=== PATIENT | male | born 1970 | race Caucasian/White ===

== ENCOUNTER 2016-08-29 07:10 | Inpatient (IN) | payer OTHER ==
[~2016-08-29] VITALS: Ht 180.3 cm; Wt 89.2 kg
[2016-08-29 07:52] LABS: POINT-OF-CARE METER ID UU14100415
[2016-08-29 08:16] LABS: HEMATOCRIT 37.4 % (38.0-50.0); MCH 35.5 PG (29.0-34.0); MCHC 36.9 G/DL (30.0-36.0); MCV 96.1 FL (86-99); MEAN PLAT.VOLUME 8.6 uM^3 (9.0-12.4); PLATELET COUNT 61 K/uL (156-360); RBC DIS.WIDTH-SD 40.6 % (39-53); RED BLOOD COUNT 3.89 M/uL (4.00-5.50); WHITE BLOOD COUNT 5.8 K/uL (4.1-10.2)
[2016-08-29 08:18] LABS: EOSINOPHIL (%) 0 % (0-5); IMMATURE GRANULOCYTE (%) 0.2 % (0.0-0.7); IMMATURE GRANULOCYTE COUNT 0.1 K/uL; LYMPHOCYTE COUNT 0.5 K/uL (1.0-2.8); MONOCYTE (%) 21.4 % (3-12); MONOCYTE COUNT 1.3 K/uL (0-0.8)
[2016-08-29 08:45] LABS: CHLORIDE 95 mEq/L (99-109); POTASSIUM 3.8 mEq/L (3.7-5.4); SODIUM 137 mEq/L (136-147)
[2016-08-29 08:48] LABS: GLUCOSE 118 mg/dL (70-99)
[2016-08-29 08:49] LABS: ANION GAP 13 MEQ/L (2-14)
[2016-08-29 08:50] LABS: TOTAL BILIRUBIN 2.5 mg/dL (0.0-1.0)
[2016-08-29 08:51] LABS: GFR ESTIMATE (CALCULATED) > 59 mL/min/
[2016-08-29 08:52] LABS: UREA NITROGEN (BUN) 9 mg/dL (9-23)
[2016-08-29 08:55] LABS: ADD MIUA? YES; BILIRUBIN MODERATE; BLOOD NEGATIVE; GLUCOSE (STRIP) NEGATIVE; KETONES 15; LEUKOCYTES SMALL; NITRITE POSITIVE; PROTEIN (STRIP) 100
[2016-08-29 08:57] LABS: COLOR DK YELLOW ((YELLOW))
[2016-08-29 09:25] LABS: INFLUENZA A VIRAL ANTIGEN POSITIVE; INFLUENZA B VIRAL ANTIGEN NEGATIVE
[2016-08-29 09:26] LABS: ALKALINE PHOSPHATASE 101 IU/L (3-129)
[2016-08-29 09:28] LABS: EPITHELIAL CELLS 1+ /HPF
[2016-08-29 09:29] LABS: BACTERIA RARE /HPF; CASTS PRESENT /LPF; CRYSTALS NONE SEEN; HYALINE CASTS 0-5 /LPF; MUCUS 1+ /LPF; RED BLOOD CELLS NONE SEEN /HPF (0-5); UCUL ADDED? NO; WHITE BLOOD CELLS 0-5 /HPF (0-5)
[2016-08-29 09:32] LABS: ICTOTEST NEGATIVE
[2016-08-29] MEDS ORDERED: MULTI-VITAMIN1 EAC3 PO (13:06)
[2016-08-29] MEDS ORDERED: PROAIR HFA8.5 GM IH (13:07)
[2016-08-29 15:44] VITALS: BP 140/65
[2016-08-29 20:00] VITALS: BP 123/80
[2016-08-29 22:38] LABS: BASE EXCESS 7.1 mEq/L (-3 to +3); BICARBONATE 30.1 mEq/L (22-26); CARBOXY HGB 2.9 % (0-5); METHEMOGLOBIN 1.5 % (0-1.5); PCO2 36 mm Hg (35-45); PO2 61 mm Hg (80-100); SITE LB; pH 7.53 (7.35-7.45)
[2016-08-29 22:39] LABS: COMMENTS - BLOOD GASES C+; MODE RA; TOTAL RESP RATE 20 resp/min
[2016-08-30] VITALS (21 sets, daily range): BP systolic 134–158; BP diastolic 69–100
[2016-08-30 01:14] LABS: METH RESISTANT S AUREUS PCR POSITIVE (NEGATIVE)
[2016-08-30 01:21] LABS: PROBE CHECK PASS
[2016-08-30 05:26] LABS: HEMATOCRIT 35.2 % (38.0-50.0); MCH 34.6 PG (29.0-34.0); MCHC 34.9 G/DL (30.0-36.0); MCV 99.2 FL (86-99); MEAN PLAT.VOLUME 9.7 uM^3 (9.0-12.4); PLATELET COUNT 64 K/uL (156-360); RBC DIS.WIDTH-CV 12.3 % (11.8-14.6); RBC DIS.WIDTH-SD 44.6 % (39-53); RED BLOOD COUNT 3.55 M/uL (4.00-5.50); WHITE BLOOD COUNT 6.2 K/uL (4.1-10.2)
[2016-08-30 05:35] LABS: INTER. NORMALIZED RATIO 1.1; PROTHROMBIN TIME 11.6 (9.2-11.2)
[2016-08-30 05:52] LABS: ALKALINE PHOSPHATASE 87 IU/L (3-129); ANION GAP 10 MEQ/L (2-14); CHLORIDE 99 MEQ/L (99-109); DIRECT BILIRUBIN 0.8 mg/dL (0.0-0.3); GFR ESTIMATE (CALCULATED) > 59 mL/min/; GLUCOSE 115 mg/dL (70-99); POTASSIUM 3.9 MEQ/L (3.7-5.4); SAMPLE HEMOLYSIS CHECK 0; SAMPLE ICTERIC CHECK 0; SAMPLE LIPEMIA CHECK 0; SODIUM 140 MEQ/L (136-147); TOTAL BILIRUBIN 1.8 MG/DL (0.0-1.0); UREA NITROGEN (BUN) 8 mg/dL (9-23)
[2016-08-30 10:27] LABS: HBSG INDEX 0.21
[2016-08-30 10:28] LABS: HPCA INDEX 0.14
[2016-08-30 10:29] LABS: ANTI-HEPATITIS A VIRUS (IGM) Nonreactive; HAV INDEX 0.18
[2016-08-30 10:30] LABS: ANTI-HEPATITIS B CORE (IGM) Nonreactive; HBC IgM INDEX 0.08
[2016-08-31] VITALS (11 sets, daily range): BP systolic 95–156; BP diastolic 63–99
[2016-08-31 04:43] LABS: CHLORIDE 101 mEq/L (99-109); POTASSIUM 3.2 mEq/L (3.7-5.4); SODIUM 139 mEq/L (136-147)
[2016-08-31 04:45] LABS: GLUCOSE 88 mg/dL (70-99)
[2016-08-31 04:46] LABS: ANION GAP 16 MEQ/L (2-14)
[2016-08-31 04:49] LABS: ALKALINE PHOSPHATASE 96 IU/L (3-129); GFR ESTIMATE (CALCULATED) > 59 mL/min/
[2016-08-31 04:50] LABS: UREA NITROGEN (BUN) 6 mg/dL (9-23)
[2016-08-31 04:55] LABS: TOTAL BILIRUBIN 1.9 mg/dL (0.0-1.0)
[2016-08-31] MEDS ORDERED: CEFTIN250 MG PO (11:34)
[2016-08-31] MEDS ORDERED: TAMIFLU75 MG PO (11:34)
== END 2016-08-31 16:18 | disposition home or self-care (01) | DRG 896 ==
LOC: EME 07:10 → EDOF 12:50 → 5WEST 12:50 → EDOF 12:50 → 5WEST 14:37 → 4WEST 23:34 → 5WEST 23:34 → 4WEST 23:34 → 5WEST 23:34 → 4WEST 08-30 00:01
PROVIDERS: Emergency Medicine; Internal Medicine; Internal Medicine Gastroenterology; Internal Medicine Pulmonary Disease; Nurse Practitioner Adult Health; Surgery
DX: F10.231 Alcohol dependence with withdrawal delirium (principal); J10.08 Influenza due to other identified influenza virus with other specified pneumonia; D69.59 Other secondary thrombocytopenia; J12.9 Viral pneumonia, unspecified; R74.0 Nonspecific elevation of levels of transaminase and lactic acid dehydrogenase [LDH]; F10.229 Alcohol dependence with intoxication, unspecified; K80.20 Calculus of gallbladder without cholecystitis without obstruction; D64.9 Anemia, unspecified; J45.909 Unspecified asthma, uncomplicated; R19.7 Diarrhea, unspecified
CPT/HCPCS: 36600; 71010; 72100; 76705; 80053; 80074; 81003; 82248; 82803; 82948; 85025; 85027; 85610; 87086; 87493; 87502; 87506; 87641; 94799; 99202; 99281; 99285; J0696; J1630; J2060; J2405; J3411; J7030; J7050

== ENCOUNTER 2017-02-18 05:47 | Inpatient (IN) | payer OTHER ==
[~2017-02-18] VITALS: Ht 182.9 cm; Wt 88.3 kg
[2017-02-18] VITALS (13 sets, daily range): BP systolic 109–153; BP diastolic 70–94
[~2017-02-18 05:47] MED LIST: CEFTIN250 MG PO; MULTI-VITAMIN1 EAC3 PO; PROAIR HFA8.5 GM IH; TAMIFLU75 MG PO
[2017-02-18 06:39] LABS: EOSINOPHIL (%) 1.4 % (0-5); EOSINOPHIL COUNT 0.1 K/uL (0-0.3); HEMATOCRIT 39.4 % (38.0-50.0); IMMATURE GRANULOCYTE (%) 0.3 % (0.0-0.7); INSTRUMENT ABS NEUTROPHIL CT 4.3 K/uL; LYMPHOCYTE COUNT 0.9 K/uL (1.0-2.8); MCH 35.1 PG (29.0-34.0); MCHC 35.8 G/DL (30.0-36.0); MONOCYTE (%) 17.7 % (3-12); MONOCYTE COUNT 1.1 K/uL (0-0.8); NEUTROPHIL (%) 66.8 % (45-76); NEUTROPHIL COUNT 4.3 K/uL (1.8-6.4); PLATELET COUNT 78 K/uL (156-360); RBC DIS.WIDTH-CV 11.6 % (11.8-14.6); RBC DIS.WIDTH-SD 41.8 % (39-53); RED BLOOD COUNT 4.02 M/uL (4.00-5.50); WHITE BLOOD COUNT 6.4 K/uL (4.1-10.2)
[2017-02-18 06:50] LABS: CHLORIDE 97 mEq/L (99-109); POTASSIUM 3.1 mEq/L (3.7-5.4); SODIUM 140 mEq/L (136-147)
[2017-02-18 06:53] LABS: GLUCOSE 73 mg/dL (70-99)
[2017-02-18 06:54] LABS: ANION GAP 18 MEQ/L (2-14); TOTAL BILIRUBIN 2.6 mg/dL (0.0-1.0)
[2017-02-18 06:56] LABS: ALKALINE PHOSPHATASE 85 IU/L (3-129); SERUM ETHYL ALCOHOL < 10 mg/dL
[2017-02-18 06:57] LABS: GFR ESTIMATE (CALCULATED) > 59 mL/min/
[2017-02-18 06:58] LABS: DIRECT BILIRUBIN 1.2 mg/dL (0.0-0.3); UREA NITROGEN (BUN) 11 mg/dL (9-23)
[2017-02-18 09:33] LABS: INTER. NORMALIZED RATIO 1.2; PROTHROMBIN TIME 13.4 SEC (10.2-12.9)
[2017-02-18 13:19] LABS: METH RESISTANT S AUREUS PCR NEGATIVE (NEGATIVE)
[2017-02-18 13:56] LABS: PROBE CHECK PASS; SPECIMEN PROCESSING CONTROL PASS
[2017-02-18 15:17] LABS: ADD MIUA? YES; BILIRUBIN NEGATIVE; BLOOD SMALL; COLOR YELLOW ((YELLOW)); GLUCOSE (STRIP) NEGATIVE; KETONES 5; LEUKOCYTES NEGATIVE; NITRITE NEGATIVE; PROTEIN (STRIP) NEGATIVE; SPECIFIC GRAVITY 1.003 (1.000-1.030); UROBILINOGEN 0.2 MG/DL (0.2-1.0)
[2017-02-18 15:28] LABS: BACTERIA NONE SEEN /HPF; EPITHELIAL CELLS NONE SEEN /HPF; MUCUS NONE SEEN /LPF; RED BLOOD CELLS 0-5 /HPF (0-5); WHITE BLOOD CELLS 0-5 /HPF (0-5)
[2017-02-18 15:37] LABS: AMPHETAMINE NEGATIVE (500 ng/mL); BARBITURATES NEGATIVE (200 ng/mL); BENZODIAZEPINES PRESUMPTIVE POSITIVE (150 ng/mL); COCAINE NEGATIVE (150 ng/mL); INTERNAL CONTROLS VALID? YES; METHADONE NEGATIVE (200 ng/mL); METHAMPHETAMINE NEGATIVE (500 ng/mL); OPIATES (MORPHINE) NEGATIVE (100 ng/mL); OXYCODONE NEGATIVE (100 ng/mL); PHENCYCLIDINE NEGATIVE (25 ng/mL); PROPOXYPHENE NEGATIVE (300 ng/mL); THC CANNABINOIDS NEGATIVE (50 ng/mL); TRICYCLIC ANTIDEPRESSANTS NEGATIVE (300 ng/mL)
[2017-02-18 15:38] LABS: ADD MEDTOX COMMENT Y
[2017-02-18 16:29] LABS: BENZODIAZEPINES, URINE SCREEN POSITIVE (200 ng/mL)
[2017-02-18 16:46] LABS: BASE EXCESS 1.3 mEq/L (-3 to +3); BICARBONATE 26.6 mEq/L (22-26); CARBOXY HGB 2.9 % (0-5); COMMENTS - BLOOD GASES +C; DEVICE NC; METHEMOGLOBIN 1.5 % (0-1.5); O2 FLOW 3 L/MIN; PCO2 44 mm Hg (35-45); PO2 85 mm Hg (80-100); SITE LR +A; TOTAL RESP RATE 24 resp/min; pH 7.39 (7.35-7.45)
[2017-02-18 20:07] LABS: ANION GAP 14 MEQ/L (2-14); CHLORIDE 102 MEQ/L (99-109); GFR ESTIMATE (CALCULATED) > 59 mL/min/; POTASSIUM 3.2 MEQ/L (3.7-5.4); SAMPLE HEMOLYSIS CHECK 0; SAMPLE ICTERIC CHECK 0; SAMPLE LIPEMIA CHECK 0; SODIUM 141 MEQ/L (136-147); UREA NITROGEN (BUN) 7 mg/dL (9-23)
[2017-02-18 20:20] LABS: GLUCOSE 99 mg/dL (70-99)
[2017-02-19] VITALS (16 sets, daily range): BP systolic 99–138; BP diastolic 72–95
[2017-02-19 06:34] LABS: ALKALINE PHOSPHATASE 67 IU/L (3-129); ANION GAP 16 MEQ/L (2-14); CHLORIDE 104 MEQ/L (99-109); GFR ESTIMATE (CALCULATED) > 59 mL/min/; SAMPLE HEMOLYSIS CHECK 0; SAMPLE ICTERIC CHECK 0; SAMPLE LIPEMIA CHECK 0; SODIUM 138 MEQ/L (136-147); TOTAL BILIRUBIN 1.9 MG/DL (0.0-1.0); UREA NITROGEN (BUN) 7 mg/dL (9-23)
[2017-02-19 06:57] LABS: EOSINOPHIL (%) 3.4 % (0-5); EOSINOPHIL COUNT 0.2 K/uL (0-0.3); HEMATOCRIT 36.6 % (38.0-50.0); IMMATURE GRANULOCYTE (%) 0.5 % (0.0-0.7); INSTRUMENT ABS NEUTROPHIL CT 3.6 K/uL; LYMPHOCYTE COUNT 0.8 K/uL (1.0-2.8); MCH 36.5 PG (29.0-34.0); MCHC 36.6 G/DL (30.0-36.0); MCV 99.7 FL (86-99); MEAN PLAT.VOLUME 8.3 uM^3 (9.0-12.4); MONOCYTE (%) 15.8 % (3-12); MONOCYTE COUNT 0.9 K/uL (0-0.8); NEUTROPHIL (%) 64.7 % (45-76); NEUTROPHIL COUNT 3.6 K/uL (1.8-6.4); PLATELET COUNT 66 K/uL (156-360); RBC DIS.WIDTH-CV 11.6 % (11.8-14.6); RBC DIS.WIDTH-SD 42.5 % (39-53); RED BLOOD COUNT 3.67 M/uL (4.00-5.50); WHITE BLOOD COUNT 5.6 K/uL (4.1-10.2)
[2017-02-19 06:59] LABS: GLUCOSE 68 mg/dL (70-99)
[2017-02-19] MEDS ORDERED: B COMPLEX #11 EACH PO (15:09)
[2017-02-19] MEDS ORDERED: BENADRYL50 MG PO (15:10)
[2017-02-19] MEDS ORDERED: ATIVAN0.5 MG PO (15:12)
[2017-02-20] VITALS (7 sets, daily range): BP systolic 126–157; BP diastolic 74–95
[2017-02-20 10:35] LABS: ALKALINE PHOSPHATASE 75 IU/L (3-129); ANION GAP 9 MEQ/L (2-14); CHLORIDE 99 MEQ/L (99-109); GFR ESTIMATE (CALCULATED) > 59 mL/min/; GLUCOSE 113 mg/dL (70-99); POTASSIUM 3.2 MEQ/L (3.7-5.4); SAMPLE HEMOLYSIS CHECK 0; SAMPLE ICTERIC CHECK 0; SAMPLE LIPEMIA CHECK 0; SODIUM 138 MEQ/L (136-147); TOTAL BILIRUBIN 1.6 MG/DL (0.0-1.0); UREA NITROGEN (BUN) 5 mg/dL (9-23)
[2017-02-20] MEDS ORDERED: FOLIC ACID1 MG PO (14:29)
[2017-02-20] MEDS ORDERED: LORAZEPAM2 MG/1 M1 IV ×2 (14:30)
[2017-02-20] MEDS ORDERED: LORAZEPAM2 MG PO (14:30)
[2017-02-20] MEDS ORDERED: CHLORDIAZEPOXID25 MG PO (14:30)
[2017-02-21] VITALS (10 sets, daily range): BP systolic 0–145; BP diastolic 0–90
[2017-02-21 08:28] LABS: ANION GAP 9 MEQ/L (2-14); CHLORIDE 104 MEQ/L (99-109); GFR ESTIMATE (CALCULATED) > 59 mL/min/; GLUCOSE 96 mg/dL (70-99); MAGNESIUM 1.6 mg/dl (1.3-2.7); SAMPLE HEMOLYSIS CHECK 0; SAMPLE ICTERIC CHECK 0; SAMPLE LIPEMIA CHECK 0; SODIUM 141 MEQ/L (136-147); UREA NITROGEN (BUN) 6 mg/dL (9-23)
[2017-02-21 08:33] LABS: HEMATOCRIT 37.6 % (38.0-50.0); MCH 34.9 PG (29.0-34.0); MCHC 34.8 G/DL (30.0-36.0); MCV 100.3 FL (86-99); MEAN PLAT.VOLUME 9.1 uM^3 (9.0-12.4); RBC DIS.WIDTH-CV 11.7 % (11.8-14.6); RBC DIS.WIDTH-SD 42.5 % (39-53); RED BLOOD COUNT 3.75 M/uL (4.00-5.50); WHITE BLOOD COUNT 4.2 K/uL (4.1-10.2)
[2017-02-21 08:36] LABS: PLATELET COUNT 112 K/uL (156-360)
[2017-02-21] MEDS ORDERED: ADULT MULTI G200 MCG PO (10:26)
[2017-02-21] MEDS ORDERED: Thiamine,Vitamin B1 PO (11:36)
== END 2017-02-21 13:28 | disposition home or self-care (01) | DRG 897 ==
LOC: EME 05:47 → EDOF 08:29 → 4WEST 08:29 → ENRESERV 08:31 → CANRESERV 08:31 → ENRESERV 09:00 → EDOF 09:09 → ENRESERV 09:29 → 4EAST 10:20 → ENRESERV 10:58 → 4WEST 11:28
PROVIDERS: Emergency Medicine; Hospitalist; Internal Medicine Critical Care Medicine; Student in an Organized Health Care Education/Training Program
DX: F10.231 Alcohol dependence with withdrawal delirium (principal); E83.42 Hypomagnesemia; E87.6 Hypokalemia; J45.20 Mild intermittent asthma, uncomplicated; F32.9 Major depressive disorder, single episode, unspecified; K71.6 Toxic liver disease with hepatitis, not elsewhere classified; Z87.01 Personal history of pneumonia (recurrent); Z80.8 Family history of malignant neoplasm of other organs or systems
CPT/HCPCS: 36600; 80048; 80048 91; 80053; 80076; 81003; 82607; 82746; 82803; 83735; 84999; 85025; 85027; 85610; 87641; 94799; 99281; 99284; G0480; J1650; J2060; J2250; J3411; J3475; J3480; J7030; J7120

== ENCOUNTER 2017-09-26 16:32 | Emergency (ER) | payer OTHER ==
[~2017-09-26] VITALS: Ht 180.3 cm; Wt 92.5 kg
[~2017-09-26 16:32] MED LIST changes: +ADULT MULTI G200 MCG PO; +ATIVAN0.5 MG PO; +B COMPLEX #11 EACH PO; +BENADRYL50 MG PO; +CHLORDIAZEPOXID25 MG PO; +FOLIC ACID1 MG PO; +LORAZEPAM2 MG PO; +LORAZEPAM2 MG/1 M1 IV; +Thiamine,Vitamin B1 PO
[2017-09-26 17:17] LABS: HEMOGLOBIN 17.4 G/DL (12.5-16.6); MCH 33.7 PG (29.0-34.0); MCV 91.1 FL (86-99); PLATELET COUNT 183 K/uL (156-360); RBC DIS.WIDTH-SD 43.3 % (39-53); RED BLOOD COUNT 5.16 M/uL (4.00-5.50); WHITE BLOOD COUNT 11.3 K/uL (4.1-10.2)
[2017-09-26 17:25] LABS: ALBUMIN 4.6 g/dL (3.2-4.8)
[2017-09-26 17:26] LABS: CHLORIDE 97 mEq/L (99-109); POTASSIUM 3.9 mEq/L (3.7-5.4); SODIUM 136 mEq/L (136-147)
[2017-09-26 17:27] LABS: AMYLASE 90 IU/L (1-118)
[2017-09-26 17:28] LABS: GLUCOSE 119 mg/dL (70-99); TOTAL PROTEIN 8.4 g/dL (6.4-8.3)
[2017-09-26 17:30] LABS: TOTAL BILIRUBIN 2.1 mg/dL (0.0-1.0)
[2017-09-26 17:31] LABS: ALKALINE PHOSPHATASE 128 IU/L (3-129)
[2017-09-26 17:32] LABS: CREATININE 1.3 mg/dL (0.6-1.3); GFR ESTIMATE (CALCULATED) > 59 mL/min/ (58.99-99999)
[2017-09-26 17:33] LABS: AST (GOT) 69 IU/L (2-34); UREA NITROGEN (BUN) 13 mg/dL (9-23)
[2017-09-26 17:35] LABS: ALT (GPT) 50 IU/L (3-49); LIPASE 112 U/L (1.0-51.0)
[2017-09-26] MEDS ORDERED: DESYREL100 MG PO (19:41)
[2017-09-26] MEDS ORDERED: NALTREXONE HCL50 MG PO (19:41)
[2017-09-26] MEDS ORDERED: ZOLOFT100 MG PO (19:43)
[2017-09-26] MEDS ORDERED: ABILIFY20 MG PO (19:44)
[2017-09-26] MEDS ORDERED: VITAMIN B-1100 MG PO (19:45)
[2017-09-26] MEDS ORDERED: FOLIC ACID1 MG PO (19:45)
[2017-09-26] MEDS ORDERED: VENTOLIN HFA18 GM IH (19:46)
[2017-09-26] MEDS ORDERED: VITAMIN B-6100 MG PO (19:46)
[2017-09-26] MEDS ORDERED: ULTRAM50 MG PO (20:24)
[2017-09-26] MEDS ORDERED: ZOFRAN ODT4 MG PO (20:24)
[2017-09-26] MEDS ORDERED: OMEPRAZOLE40 M1 PO (20:25)
[2017-09-26 20:47] VITALS: BP 131/86
== END 2017-09-26 20:48 | disposition home or self-care (01) ==
LOC: EME 16:32
PROVIDERS: Physician Assistant
DX: K85.90 Acute pancreatitis without necrosis or infection, unspecified (principal); K80.20 Calculus of gallbladder without cholecystitis without obstruction; K76.0 Fatty (change of) liver, not elsewhere classified; J45.909 Unspecified asthma, uncomplicated; F32.9 Major depressive disorder, single episode, unspecified
CPT/HCPCS: 74177; 80053; 81003; 82150; 83690; 85027; 99281; 99285; J1885; J2405; J7030